=== PATIENT | female | born 1940 | race Caucasian/White ===

== ENCOUNTER 2017-03-21 10:23 | Emergency (ER) | payer SELFPAY ==
[2017-03-21 10:33] VITALS: BP 96/57
--- NOTE | 2017-03-21 10:36 | UC ---
Respiratory Complaint HPI - HPI Summary HPI Summary: Per urgent care physician assistant "c/o productive cough with green secretions, feels like "lungs are full" that started 2 days ago. Received flu shot 3 days ago. " states she has been sick x 3 wks. son has been trying to convince her to come to get treated and she has refused. cough. no fever. no SOB. quit smoking last yr. started at age 42, 1 pk per week. used neb 730 this AM. adamantly denies h/o COPD stating that all breathing tests have been nml. - History of Current Complaint Chief Complaint: UCRespiratory Stated Complaint: COUGH Time Seen by Provider: 03/21/17 10:34 - Allergies/Home Medications Allergies/Adverse Reactions: Allergies Allergy/AdvReac Type Severity Reaction Status Date / Time No Known Allergies Allergy Verified 03/21/17 10:27 PMH/Surg Hx/FS Hx/Imm Hx Previously Healthy: Yes Other History Of: Negative For: HIV - Surgical History Surgical History: Yes Surgery Procedure, Year, and Place: Benign Left Breast biopsy [id number] - Family History Known Family History: Positive: Hypertension - Social History Alcohol Use: None Substance Use Type: None Smoking Status (MU): Former Smoker When Did the Patient Quit Smoking/Using Tobacco: 04/2015 - Immunization History Most Recent Influenza Vaccination: 2016 Review of Systems Constitutional: Negative Skin: Negative Eyes: Negative ENT: Negative Respiratory: Cough Cardiovascular: Negative Gastrointestinal: Negative Genitourinary: Negative Motor: Negative Neurovascular: Negative Musculoskeletal: Negative Neurological: Negative Psychological: Negative Is Patient Immunocompromised?: No All Other Systems Reviewed And Are Negative: Yes Physical Exam Triage Information Reviewed: Yes Appearance: Well-Appearing, Well-Nourished, Thin Vital Signs: Initial Vital Signs Temp 99.8 F 03/21/17 10:29 Pulse 97 03/21/17 10:29 Resp 40 03/21/17 10:29 BP 96/57 03/21/17 10:29 Pulse Ox 92 03/21/17 10:29 Vital Signs Reviewed: Yes Eye Exam: Normal ENT: Positive: Hearing grossly normal, Pharynx normal, TMs normal Respiratory: Positive: Respiratory distress - grunting w/ breathing. RR 40. speaks full sentences, Decreased breath sounds. Negative: Crackles, Rhonchi, Stridor, Wheezing Cardiovascular Exam: Normal Cardiovascular: Positive: RRR, No Murmur, Pulses Normal Abdomen Description: Positive: Nontender, Soft Musculoskeletal Exam: Normal Neurological Exam: Normal Psychological Exam: Normal Skin Exam: Normal UC Diagnostic Evaluation - Laboratory O2 Sat by Pulse Oximetry: 92 Respiratory Course/Dx - Course Course Of Treatment: CXR shows large rt mass vs pneumonia. COPD, possible pulm fibrosis. O2 sat is 92% on RA initially with RR of 40 & grunting. 3LNC up to 94 %. s/p nebulizer w/ RR 37 & 94% astill on 3LNC. -resists ER initially but understands potential progression of resp distress and . she continues to refuse ambulance but will go to ER by private car. 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 I stressed the importance. she declines to call him to come pick her up. I advised to go as quickly as possible to avoid rapid decline. she does admit that her son has been trying to convince her to come in for 3 weeks. - Differential Dx/Diagnosis Differential Diagnosis/HQI/PQRI: Bronchitis, Exacerbation Of COPD, Lower Resp Infection Provider Diagnoses: respiratory distress Discharge - Discharge Plan Condition: Fair Disposition: AGAINST MEDICAL ADVICE Referrals: Gabriela Banerjee PA [Primary Care Provider] -
--- NOTE | 2017-03-21 11:19 | RAD ---
INDICATION: Cough x2 days COMPARISON: Chest x-ray dated September 22, 2015 TECHNIQUE: PA and lateral views of the chest were obtained. FINDINGS: The heart and mediastinum are normal in size and contour. On the AP and lateral views the lungs are hyperaerated, there is an increased retrosternal airspace and the diaphragm are flattened similar to the prior chest x-ray. There is worsening patchy parenchymal density overlying the right greater than left lung bases. Overlying the mid-level right lung is a more confluent area of density measuring approximately 1.9 x 2.9 cm in the AP projection. Visualized bones are normal for the patient's age. There is no radiographic evidence of free air beneath the diaphragm IMPRESSION: CHRONIC FINDINGS ARE CONSISTENT WITH THE STIGMATA OF CHRONIC OBSTRUCTIVE PULMONARY DISEASE AND POTENTIALLY EARLY INTERSTITIAL PULMONARY FIBROSIS. THERE IS WORSENING PARENCHYMAL DENSITY OVERLYING THE RIGHT WORSE THAN LEFT MID-LEVEL AND LOWER LUNGS WHICH COULD REPRESENT PNEUMONIA ACCORDING TO THE PATIENT'S CURRENT CLINICAL PRESENTATION. A FOLLOW-UP CHEST X-RAY AFTER AN APPROPRIATE COURSE OF THERAPY IS ADVISED THE PATIENT LIKELY HAS RISK FACTORS FOR LUNG CANCER.
[2017-03-21] MEDS ORDERED: Albuterol 2.5 MG/3 ML NEB.SOL* (0.083%) INH ONE (11:30)
== END 2017-03-21 12:35 | disposition left against medical advice (07) ==
LOC: UCCORT 10:23
DX: R06.03 Acute respiratory distress (principal); R05 Cough; Z87.891 Personal history of nicotine dependence
CPT/HCPCS: 71020; 99213; G0463

== ENCOUNTER 2017-08-22 10:33 | Emergency (ER) | payer MEDICARE ==
[2017-08-22 11:59] VITALS: BP 111/71
--- NOTE | 2017-08-22 13:00 | UC ---
Respiratory Complaint HPI - HPI Summary HPI Summary: Patient here today with sore throat cough with dark yellow sputum low-grade temperatures has been going on for 2 days. Denies shortness of breath. Patient is concerned because she's had pneumonia in the past. Quit smoking 3 years ago is being treated for breast cancer right breast with an oral agent and reports excellent management by her oncologist - History of Current Complaint Chief Complaint: UCRespiratory Stated Complaint: SORE THROAT Time Seen by Provider: 08/22/17 12:30 Hx Obtained From: Patient ?: No Onset/Duration: Sudden Onset, Lasting Days - 2, Still Present Timing: Constant Severity Initially: Mild Severity Currently: Mild Character: Cough: Productive Aggravating Factors: Nothing Alleviating Factors: Nothing Associated Signs And Symptoms: Positive: Fever - subjective report of fevers, Pleuritic Chest Pain, URI - Allergies/Home Medications Allergies/Adverse Reactions: Allergies Allergy/AdvReac Type Severity Reaction Status Date / Time No Known Allergies Allergy Verified 03/21/17 10:27 Home Medications: Home Medications Calcium Carbonate [Calcium] 1,200 mg PO TID 08/22/17 [History Confirmed 08/22/17 ] Oral Chemo 1 dose PO DAILY 08/22/17 [History Confirmed 08/22/17] Vitamin D 400 units PO DAILY 08/22/17 [History Confirmed 08/22/17] Vitamin B Complex [Super B-50 Complex] 1 each PO DAILY 08/22/17 [History Confirmed 08/22/17] PMH/Surg Hx/FS Hx/Imm Hx Previously Healthy: No Cancer History: Breast Cancer Other History Of: Negative For: HIV - Surgical History Surgical History: Yes Surgery Procedure, Year, and Place: Benign Left Breast biopsy [id number] - Family History Known Family History: Positive: None, Hypertension - Social History Occupation: Retired Lives: With Family Alcohol Use: None Substance Use Type: None Smoking Status (MU): Former Smoker When Did the Patient Quit Smoking/Using Tobacco: 04/2015 - Immunization History Most Recent Influenza Vaccination: 2017 Review of Systems Constitutional: Fever - subjective, Chills, Fatigue Skin: Negative Eyes: Negative ENT: Sore Throat Respiratory: Cough Cardiovascular: Negative Gastrointestinal: Negative Genitourinary: Negative Motor: Negative Neurovascular: Negative Musculoskeletal: Negative Neurological: Negative Psychological: Negative Is Patient Immunocompromised?: No All Other Systems Reviewed And Are Negative: Yes Physical Exam Triage Information Reviewed: Yes Appearance: No Pain Distress, Ill-Appearing - chronic illness, Thin Vital Signs: Initial Vital Signs Temp 99.3 F 08/22/17 11:50 Pulse 70 08/22/17 11:50 Resp 16 08/22/17 11:50 BP 111/71 08/22/17 11:50 Pulse Ox 97 08/22/17 11:50 Vital Signs Reviewed: Yes Eye Exam: Normal Eyes: Positive: Conjunctiva Clear ENT Exam: Normal ENT: Positive: Normal ENT inspection, Hearing grossly normal, Pharynx normal. Negative: Nasal congestion, Nasal drainage, Trismus, Muffled voice, Hoarse voice , Sinus tenderness Neck exam: Normal Neck: Positive: Supple, Nontender Respiratory Exam: Normal Respiratory: Positive: Chest non-tender, Lungs clear, Normal breath sounds, No respiratory distress, No accessory muscle use Cardiovascular Exam: Normal Cardiovascular: Positive: RRR, No Murmur, Pulses Normal, Brisk Capillary Refill Musculoskeletal Exam: Normal Musculoskeletal: Positive: Strength Intact, ROM Intact, No Edema Neurological Exam: Normal Neurological: Positive: Alert, Muscle Tone Normal Psychological Exam: Normal Skin Exam: Normal UC Diagnostic Evaluation - Laboratory O2 Sat by Pulse Oximetry: 97 - Radiology Xray Interpretation: Positive (See Comments) - small right basililar infiltrate , small pleural effusion Radiology Interpretation Completed By: Radiologist Respiratory Course/Dx - Course Course Of Treatment: continue albuterol, increase fluids, doxycycline, follow with pcp in 1 week - Differential Dx/Diagnosis Provider Diagnoses: right basilar pneumonia/pleural effusion Discharge - Sign-Out/Discharge Documenting (check all that apply): Discharge/Admit/Transfer - Discharge Plan Condition: Stable Disposition: HOME Prescriptions: DOXYcycline CAP(*) [DOXYcycline 100MG CAP(*)] 100 mg PO BID #20 cap Patient Education Materials: Community Acquired Pneumonia (ED) Referrals: Molly Bennett MD [Primary Care Provider] - 5 Days Additional Instructions: Please separate the use of your antibiotic and calcium carbonate by 2 hours - Billing Disposition and Condition Condition: STABLE Disposition: HOME
--- NOTE | 2017-08-22 13:01 | RAD ---
INDICATION: Shortness of breath and cough. COMPARISON: Comparison is made with a prior chest x-ray study from March 21, 2017. TECHNIQUE: Dual-energy PA and lateral views of the chest were obtained. FINDINGS: Cardiac and mediastinal contours appear normal. The lungs are hyperinflated. There is mild prominence of the interstitial markings which is unchanged. There is a small infiltrate at the right lung base likely within the right middle lobe which appears less prominent than on the prior study. There appears to be a trace right pleural effusion. IMPRESSION: 1. SMALL RIGHT BASILAR INFILTRATE AND TRACE PLEURAL EFFUSION. 2. COPD.
== END 2017-08-22 13:25 | disposition home or self-care (01) ==
LOC: UCCORT 10:33
DX: J18.9 Pneumonia, unspecified organism (principal); J90 Pleural effusion, not elsewhere classified; Z87.891 Personal history of nicotine dependence
CPT/HCPCS: 71046; 87651; 99212; G0463

== ENCOUNTER 2017-10-21 18:38 | Emergency (ER) | payer MEDICARE ==
[2017-10-21 18:52] VITALS: BP 111/65
--- NOTE | 2017-10-21 20:11 | RAD ---
INDICATION: Chest pain COMPARISON: Similar chest x-ray dated August 22, 2017 TECHNIQUE: PA and lateral views of the chest were obtained. FINDINGS: The heart and mediastinum are normal in size and contour. Similar to the prior chest x-ray, the stigmata of chronic obstructive pulmonary disease is seen. Otherwise the lungs are grossly clear. There is no evidence of large pleural effusion. Visualized bones are normal for the patient's age. There is no radiographic evidence of free air beneath the diaphragm IMPRESSION: STIGMATA OF CHRONIC OBSTRUCTIVE PULMONARY DISEASE SIMILAR IN APPEARANCE TO THE PRIOR CHEST X-RAY.
--- NOTE | 2017-10-21 20:24 | ED ---
Respiratory - HPI Summary HPI Summary: 77 yr old female with the complaint of pain in upper back, worse with deep breath, associated with fever, fatigue, coughing, but non productive. She does not smoke any more. No other complaints. - History of Current Complaint Chief Complaint: UCBackPain Stated Complaint: BACK DISCOMFORT Time Seen by Provider: 10/21/17 19:00 Pain Intensity: 2 - Allergy/Home Medications Allergies/Adverse Reactions: Allergies Allergy/AdvReac Type Severity Reaction Status Date / Time No Known Allergies Allergy Verified 03/21/17 10:27 Home Medications: Home Medications Exemestane 25 mg PO DAILY 10/21/17 [History Confirmed 10/21/17] PMH/Surg Hx/FS Hx/Imm Hx Endocrine/Hematology History: Denies: Hx Diabetes Cardiovascular History: Denies: Hx Congestive Heart Failure, Hx Hypertension Respiratory History: Denies: Hx Lung Cancer Neurological History: Denies: Hx Transient Ischemic Attacks (TIA) Psychiatric History: Denies: Hx Anxiety - Cancer History Cancer Type, Location and Year: right breast growth 2017, radiation tx, and current oral chemo Hx Radiation Therapy: No - Surgical History Surgery Procedure, Year, and Place: Benign Left Breast biopsy [id number]. LUMPECTOMY RIGHT BREAST Infectious Disease History: No Infectious Disease History: Denies: Traveled Outside the [place] in Last 30 Days - Family History Known Family History: Positive: None, Hypertension - Social History Alcohol Use: None Substance Use Type: Reports: None Smoking Status (MU): Former Smoker Review of Systems Positive: Fever, Fatigue Positive: Other - pain with deep breath Positive: Shortness Of Breath, Cough All Other Systems Reviewed And Are Negative: Yes Physical Exam Triage Information Reviewed: Yes Vital Signs On Initial Exam: Initial Vitals Temp Pulse Resp BP Pulse Ox 99.1 F 74 20 111/65 97 10/21/17 18:43 10/21/17 18:43 10/21/17 18:43 10/21/17 18:43 10/21/17 18:43 Vital Signs Reviewed: Yes Appearance: Positive: Well-Appearing, No Pain Distress Skin: Positive: Warm, Skin Color Reflects Adequate Perfusion Head/Face: Positive: Normal Head/Face Inspection Eyes: Positive: EOMI ENT: Positive: Normal ENT inspection Neck: Positive: Nontender Respiratory/Lung Sounds: Positive: Clear to Auscultation, Breath Sounds Present Cardiovascular: Positive: RRR. Negative: Murmur Abdomen Description: Positive: Nontender Musculoskeletal: Positive: Strength/ROM Intact Neurological: Positive: Sensory/Motor Intact, Alert, Oriented to Person Place, Time, CN Intact II-III Psychiatric: Positive: Normal - Katiana Coma Scale Best Eye Response: 4 - Spontaneous Best Motor Response: 6 - Obeys Commands Best Verbal Response: 5 - Oriented Coma Scale Total: 15 Diagnostics - Vital Signs Vital Signs Temp Pulse Resp BP Pulse Ox 10/21/17 18:43 99.1 F 74 20 111/65 97 - Laboratory Lab Statement: Any lab studies that have been ordered have been reviewed, and results considered in the medical decision making process. - Radiology chest Xray Interpretation: No Acute Changes Radiology Interpretation Completed By: Radiologist - COPD Disposition - Course Course Of Treatment: 77 yr old signing out AMA. Advised to go to the ER for work up of her symptoms and risk of PE among other things. - Diagnoses Provider Diagnoses: Pleuritic pain, Fever, Shortness of breath Discharge - Sign-Out/Discharge Documenting (check all that apply): Discharge/Admit/Transfer - Discharge Plan Condition: Good Disposition: AGAINST MEDICAL ADVICE Referrals: Molly Bennett MD [Primary Care Provider] - - Billing Disposition and Condition Condition: GOOD Disposition: Against Medical Advice
== END 2017-10-21 20:28 | disposition left against medical advice (07) ==
LOC: UCCORT 18:38
DX: R07.81 Pleurodynia (principal); R50.9 Fever, unspecified; R06.02 Shortness of breath
CPT/HCPCS: 71046; 99211; G0463

== ENCOUNTER 2017-12-31 15:34 | Emergency (ER) | payer MEDICARE ==
--- OUTSIDE RECORDS SUMMARY | 2017-12-31 15:42 | XMS REPORT | Continuity of Care Document ---
:1940 External Reference #:[id number] Author Name Molly Bennett M.D. Address [address] [place] [address] [address] [place] [address] Care Team Providers Name Role Phone Molly Bennett MD Care Team Information Hand Bander Unavailable Payers Type Date Identification Numbers Payment Provider Subscriber Policy Number: [id number] [facility] Kaya Felipe Group Number: [id number] PayID: [id number] [address] [place] [address] Advance Directives Description No Information Available Problems Description No Information Family History Description No Information Available Social History Type Date Description Comments Sex Unknown Allergies, Adverse Reactions, Alerts Description No Known Drug Allergies Medications Medication Date Status Form Strength Qnty SIG Indications Ordering Provider Ibuprofen Active Tablets 800mg 90tabs 1 by mouth M51.37 Molly Bennett 8 three M., M.D. times a day as needed M79.606 M54.17 Hydrocodone-Acetaminophen 08/19/2017 Active Tablets 7.5-325mg 30tabs 1 tab M51.37 Donald, by Ahmad mouth M., three M.D. times a day as needed M79.606 M54.17 Immunizations Description No Information Available Vital Signs Description No Information Available Results Test Date Facility Test Result H/L Range Note Urine Drug [facility] [id number] Negative 5 1, 2 8 ng/mL Antidepressants [facility] Amitriptyline Negative 20 Panel By LC/MS/MS 8 ng/mL Clomipramine Negative ng/mL 20 Desipramine Negative ng/mL 20 Doxepin Negative ng/mL 20 Fluoxetine Negative ng/mL 20 Imipramine Negative ng/mL 20 Norclomipramine Negative ng/mL 20 Nordoxepin Negative ng/mL 20 Nortriptyline Negative ng/mL 20 Sertraline Negative ng/mL 20 Trimipramine Negative ng/mL 20 3 Barbiturates Panel By 08/19/2017 [facility] Butalbital Negative ng/mL 100 LC/MS/MS Pentobarbital Negative ng/mL 100 Phenobarbital Negative ng/mL 100 Secobarbital Negative ng/mL 100 4 Benzodiazepines 08/19/2017 [facility] 2-Hydroxyethylflurazepam Negative 10 Panel By LC/MS/MS ng/mL 7-Aminoclonazepam Negative ng/mL 10 Alprazolam Negative ng/mL 10 Chlordiazepoxide Negative ng/mL 10 Clonazepam Negative ng/mL 10 Desalkylflurazepam Negative ng/mL 10 Diazepam Negative ng/mL 10 Lorazepam Negative ng/mL 10 Midazolam Negative ng/ml 10 Nordiazepam Negative ng/mL 10 Alpha-hydroxyalprazolam Negative ng/mL 10 Alpha-Hydroxymidazolam Negative ng/mL 10 Alpha-Hydroxytriazolam Negative ng/mL 10 Oxazepam Negative ng/mL 10 Prazepam Negative ng/mL 10 Temazepam Negative ng/mL 10 Zolpidem Negative ng/mL 10 5 Buprenorphine Panel By 08/19/2017 [facility] Buprenorphine Negative ng/mL 5 LC/MS/MS Naloxone Negative ng/mL 10 Norbuprenorphine Negative ng/mL 5 6 Methadone Panel By 08/19/2017 [facility] Eddp Negative ng/mL 10 LC/MS/MS Methadone Negative ng/mL 10 7 Opiates Panel By 08/19/2017 [facility] 6-Yu (Heroin Negative ng/ mL 5 LC/MS/MS Metabolite) Codeine Negative ng/mL 50 Hydrocodone Negative Inconsi <SEE NOTE> ng/mL 50 8 Hydromorphone Negative Inconsi <SEE NOTE> ng/mL 50 9 Morphine Negative ng/mL 50 Norhydrocodone Negative Inconsi <SEE NOTE> ng/mL 50 10 Noroxycodone Negative ng/mL 50 Noroxymorphone Negative ng/mL 50 Oxycodone Negative ng/mL 50 Oxymorphone Negative ng/mL 50 11 Specimen Validity 08/19/2017 [facility] Creatinine, Urine 122 mg/ dL >20 Panel Color YELLOW Yellow pH 7.6 5.0-8.0 Specific [place] 1.012 1.001-1.035 12 Amphetamine Panel By 08/19/2017 [facility] Amphetamine Negative ng/mL 50 LC/MS/MS Methamphetamine Negative ng/mL 50 Mdma (Ecstasy) Negative ng/mL 50 Mda Negative ng/ml 50 Mdea Negative ng/mL 50 13 Cocaine Panel 08/19/2017 [facility] Benzoylecgonine Negative ng/ mL 50 14 By LC/MS/MS (Cocaine) Urine DRG SCR 08/19/2017 [facility] Amphetamine NEGATIVE 1000 (12PNL-PM) Barbiturate NEGATIVE 200 Benzodiazepine NEGATIVE 200 Buprenorphine NEGATIVE 15 Cannabinoid NEGATIVE 50 Cocaine NEGATIVE 300 Methadone NEGATIVE 300 Methaqualone NEGATIVE 300 Opiate NEGATIVE 300 Oxycodone NEGATIVE 300 Phencyclidine NEGATIVE 25 Propoxyphene NEGATIVE 300 15 Laboratory test finding 08/19/2017 [facility] Tramadol Negative ng/mL 5 16 Gabapentin Negative ng/mL 100 17 Ethyl Glucuronide Negative ng/mL 500 18 1 Prescribed Medications: Hydrocodone (Hydrocodone), Ibuprofen (Ibuprofen), Acetaminophen (Acetaminophen) 2 Prescribed Medications: Hydrocodone (Hydrocodone), Ibuprofen (Ibuprofen), Acetaminophen (Acetaminophen) 3 Prescribed Medications: Hydrocodone (Hydrocodone), Ibuprofen (Ibuprofen), Acetaminophen (Acetaminophen) 4 Prescribed Medications: Hydrocodone (Hydrocodone), Ibuprofen (Ibuprofen), Acetaminophen (Acetaminophen) 5 Prescribed Medications: Hydrocodone (Hydrocodone), Ibuprofen (Ibuprofen), Acetaminophen (Acetaminophen) 6 Prescribed Medications: Hydrocodone (Hydrocodone), Ibuprofen (Ibuprofen), Acetaminophen (Acetaminophen) 7 Prescribed Medications: Hydrocodone (Hydrocodone), Ibuprofen (Ibuprofen), Acetaminophen (Acetaminophen) 8 Negative Inconsistent 9 Negative Inconsistent 10 Negative Inconsistent 11 Prescribed Medications: Hydrocodone (Hydrocodone), Ibuprofen (Ibuprofen), Acetaminophen (Acetaminophen) 12 Prescribed Medications: Hydrocodone (Hydrocodone), Ibuprofen (Ibuprofen), Acetaminophen (Acetaminophen) 13 Prescribed Medications: Hydrocodone (Hydrocodone), Ibuprofen (Ibuprofen), Acetaminophen (Acetaminophen) 14 Prescribed Medications: Hydrocodone (Hydrocodone), Ibuprofen (Ibuprofen), Acetaminophen (Acetaminophen) 15 Prescribed Medications: Hydrocodone (Hydrocodone), Ibuprofen (Ibuprofen), Acetaminophen (Acetaminophen) 16 Prescribed Medications: Hydrocodone (Hydrocodone), Ibuprofen (Ibuprofen), Acetaminophen (Acetaminophen) 17 Prescribed Medications: Hydrocodone (Hydrocodone), Ibuprofen (Ibuprofen), Acetaminophen (Acetaminophen) 18 Prescribed Medications: Hydrocodone (Hydrocodone), Ibuprofen (Ibuprofen), Acetaminophen (Acetaminophen) Procedures Description No Information Available Encounters Type Date Location Provider Dx Diagnosis Office Visit 12/23/2017 [facility] Molly Bennett 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.891 longterm (current) use of opiate analgesic Office Visit 11/11/2017 1:15p [facility] Molly Bennett M51.37 Other intervertebral M., M.D. 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.891 longterm (current) use of opiate analgesic Office Visit 10/14/2017 2:30p [facility] Molly Bennett M51.37 Other intervertebral M., M.D. 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
--- OUTSIDE RECORDS SUMMARY | 2017-12-31 15:42 | XMS REPORT | Continuity of Care Document ---
:1940 External Reference #:[id number] Author Name Molly Bennett M.D. 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 [address] [place] [address] Advance Directives Description No Information Available Problems Description No Information Family History Date Family Member(s) Problem(s) Comments General No Current Problems Father due to Natural Causes () Mother due to Diabetes () Children 5 Siblings 11 Grandchildren Several Social History Type Date Description Comments Sex Unknown Work Status Retired ETOH Use Denies alcohol use Tobacco Use Start: Unknown End: Unknown Patient is a former smoker Recreational Drug Use Denies Drug Use Allergies, Adverse Reactions, Alerts Description No Known Drug Allergies Medications Medication Date Status Form Strength Qnty SIG Indications Ordering Provider Albuterol Active Nebulizer (2.5mg/3ML) J44.9 Unknown Sulfate 00 0.083% Pantoprazole Active Tablets DR 40mg K21.0 Unknown Sodium 00 K30 Ventolin HFA Active Aerosol 108(90Base) J44.9 Unknown mcg/Act Amoxicillin 10/27/2017 - Hx Tablets 500mg 40t 2 by [id number] Stouti, 11/06/2017 abs mouth [place], twice a M.D. day Prednisone 10/27/2017 - Hx Tablets 20mg 20t 2 tab by Edel Stouti, 11/11/2017 abs mouth Ahmad M., daily 4 M.D. days,30x 3d,20x2d ,10x7d Letrozole - Hx Tablets 2.5mg Raphael, 08/17/2017 MD Xiang Fluoxetine HCL - Hx Capsules 10mg F41.9 Unknown 08/17/2017 F33.9 Immunizations Description No Information Available Vital Signs Date Vital Result Comment 12/23/2017 2:22pm BP Systolic 104 mmHg BP Diastolic 60 mmHg Height 63 inches 5'3" Weight 103.00 lb BMI (Body Mass Index) 18.2 kg/m2 Heart Rate 68 /min Respiratory Rate 14 /min 10/27/2017 11:14am BP Systolic 136 mmHg BP Diastolic 60 mmHg Height 63 inches 5'3" Weight 105.00 lb BMI (Body Mass Index) 18.6 kg/m2 Heart Rate 67 /min Body Temperature 97.0 F Respiratory Rate 14 /min 08/19/2017 3:41pm BP Systolic 110 mmHg BP Diastolic 60 mmHg Height 63 inches 5'3" Weight 107.00 lb BMI (Body Mass Index) 19.0 kg/m2 Heart Rate 85 /min Respiratory Rate 18 /min Results Test Date Facility Test Result H/L Range Note Laboratory test 08/22/2017 [facility] Rapid Strep Negative Negative 1 finding Molecular Urine DRG SCR 08/19/2017 [facility] Amphetamine NEGATIVE 1000 2 (12PNL-PM) Barbiturate NEGATIVE 200 Benzodiazepine NEGATIVE 200 Buprenorphine NEGATIVE 15 Cannabinoid NEGATIVE 50 Cocaine NEGATIVE 300 Methadone NEGATIVE 300 Methaqualone NEGATIVE 300 Opiate NEGATIVE 300 Oxycodone NEGATIVE 300 Phencyclidine NEGATIVE 25 Propoxyphene NEGATIVE 300 3 Antidepressants Panel 08/19/2017 [facility] Amitriptyline Negative ng/mL 20 By LC/MS/MS Clomipramine Negative ng/mL 20 Desipramine Negative ng/mL 20 Doxepin Negative ng/mL 20 Fluoxetine Negative ng/mL 20 Imipramine Negative ng/mL 20 Norclomipramine Negative ng/mL 20 Nordoxepin Negative ng/mL 20 Nortriptyline Negative ng/mL 20 Sertraline Negative ng/mL 20 Trimipramine Negative ng/mL 20 4 Barbiturates Panel By 08/19/2017 [facility] Butalbital Negative ng/mL 100 LC/MS/MS Pentobarbital Negative ng/mL 100 Phenobarbital Negative ng/mL 100 Secobarbital Negative ng/mL 100 5 Benzodiazepines 08/19/2017 [facility] 2-Hydroxyethylflurazepam Negative 10 Panel By [...] Negative ng/mL 10 Zolpidem Negative ng/mL 10 6 Buprenorphine Panel By 08/19/2017 [facility] Buprenorphine Negative ng/mL 5 LC/MS/MS Naloxone Negative ng/mL 10 Norbuprenorphine Negative ng/mL 5 7 Methadone Panel By 08/19/2017 [facility] Eddp Negative ng/mL 10 LC/MS/MS Methadone Negative ng/mL 10 8 Opiates Panel By 08/19/2017 [facility] 6-Yu (Heroin Negative ng/ mL 5 LC/MS/MS Metabolite) Codeine Negative ng/mL 50 Hydrocodone Negative Inconsi <SEE NOTE> ng/mL 50 9 Hydromorphone Negative Inconsi <SEE NOTE> ng/mL 50 10 Morphine Negative ng/mL 50 Norhydrocodone Negative Inconsi <SEE NOTE> ng/mL 50 11 Noroxycodone Negative ng/mL 50 Noroxymorphone Negative ng/mL 50 Oxycodone Negative ng/mL 50 Oxymorphone Negative ng/mL 50 12 Specimen Validity 08/19/2017 [facility] Creatinine, Urine 122 mg/ dL >20 Panel Color YELLOW Yellow pH 7.6 5.0-8.0 Specific [place] 1.012 1.001-1.035 13 Amphetamine Panel By 08/19/2017 [facility] Amphetamine Negative ng/mL 50 LC/MS/MS Methamphetamine Negative ng/mL 50 Mdma (Ecstasy) Negative ng/mL 50 Mda Negative ng/ml 50 Mdea Negative ng/mL 50 14 Laboratory test 08/19/2017 [facility] Cocaine Panel By Negative ng/mL 50 15 finding LC/MS/MS Tramadol Negative ng/mL 5 16 [id number] Negative ng/mL 5 17 Gabapentin Negative ng/mL 100 18 Ethyl Glucuronide Negative ng/mL 500 19 1 Poultry Hanger: [id number] 2 Prescribed Medications: Hydrocodone (Hydrocodone), Ibuprofen (Ibuprofen), Acetaminophen (Acetaminophen) 3 Prescribed Medications: Hydrocodone (Hydrocodone), Ibuprofen (Ibuprofen), Acetaminophen (Acetaminophen) 4 Prescribed Medications: Hydrocodone (Hydrocodone), Ibuprofen (Ibuprofen), Acetaminophen (Acetaminophen) 5 Prescribed Medications: Hydrocodone (Hydrocodone), Ibuprofen (Ibuprofen), Acetaminophen (Acetaminophen) 6 Prescribed Medications: Hydrocodone (Hydrocodone), Ibuprofen (Ibuprofen), Acetaminophen (Acetaminophen) 7 Prescribed Medications: Hydrocodone (Hydrocodone), Ibuprofen (Ibuprofen), Acetaminophen (Acetaminophen) 8 Prescribed Medications: Hydrocodone (Hydrocodone), Ibuprofen (Ibuprofen), Acetaminophen (Acetaminophen) 9 Negative Inconsistent 10 Negative Inconsistent 11 Negative Inconsistent 12 Prescribed Medications: Hydrocodone (Hydrocodone), Ibuprofen (Ibuprofen), Acetaminophen (Acetaminophen) 13 Prescribed Medications: Hydrocodone (Hydrocodone), Ibuprofen (Ibuprofen), Acetaminophen (Acetaminophen) 14 Prescribed Medications: Hydrocodone (Hydrocodone), Ibuprofen (Ibuprofen), Acetaminophen (Acetaminophen) 15 Prescribed Medications: Hydrocodone (Hydrocodone), Ibuprofen (Ibuprofen), Acetaminophen (Acetaminophen) 16 Prescribed Medications: Hydrocodone (Hydrocodone), Ibuprofen (Ibuprofen), Acetaminophen (Acetaminophen) 17 Prescribed Medications: Hydrocodone (Hydrocodone), Ibuprofen (Ibuprofen), Acetaminophen (Acetaminophen) 18 Prescribed Medications: Hydrocodone (Hydrocodone), Ibuprofen (Ibuprofen), Acetaminophen (Acetaminophen) 19 Prescribed Medications: Hydrocodone (Hydrocodone), Ibuprofen (Ibuprofen), Acetaminophen (Acetaminophen) Procedures Date Code Description Status 10/27/2017 32478 Spirometry Completed 10/27/2017 50072 Tympanometry Completed 08/19/2017 52127 Visual Screening Test Completed 08/19/2017 56308 EKG Completed 08/19/2017 73868 Audiometry, Bekesy, Screening Completed Encounters Type Date Location Provider Dx Diagnosis Office Visit 12/23/2017 [place] [facility] Molly Bennett, E78.2 Mixed hyperlipidemia 2:00p M.D. K21.0 Gastro-esophageal reflux disease with esophagitis K30 Functional dyspepsia J44.9 Chronic obstructive pulmonary disease, unspecified L20.9 Atopic dermatitis, unspecified J30.9 Allergic rhinitis, unspecified F41.9 Anxiety disorder, unspecified F33.9 Major depressive disorder, recurrent, unspecified H90.6 Mixed conductive and sensorineural hearing loss, bilateral M25.519 Pain in unspecified shoulder H53.30 Unspecified disorder of binocular vision M15.9 Polyosteoarthritis, unspecified M75.111 Incomplete rotatr-cuff tear/ruptr of r shoulder, not trauma M51.37 Other intervertebral disc degeneration, lumbosacral region M54.17 Radiculopathy, lumbosacral region M79.606 Pain in leg, unspecified M54.2 Cervicalgia Office Visit 10/27/2017 10:45a [facility] Molly Bennett E78.2 Mixed hyperlipidemia [place] K21.0 Gastro-esophageal reflux disease with esophagitis K30 Functional dyspepsia J44.9 Chronic obstructive pulmonary disease, unspecified L20.9 Atopic dermatitis, unspecified J30.9 Allergic rhinitis, unspecified F41.9 Anxiety disorder, unspecified F33.9 Major depressive disorder, recurrent, unspecified H90.6 Mixed conductive and sensorineural hearing loss, bilateral M25.519 Pain in unspecified shoulder H53.30 Unspecified disorder of binocular vision M15.9 Polyosteoarthritis, unspecified M75.111 Incomplete rotatr-cuff tear/ruptr of r shoulder, not trauma M51.37 Other intervertebral disc degeneration, lumbosacral region M54.17 Radiculopathy, lumbosacral region M79.606 Pain in leg, unspecified J20.9 Acute bronchitis, unspecified J01.40 Acute pansinusitis, unspecified H66.93 Otitis media, unspecified, bilateral R06.02 Shortness of breath R05 Cough R09.81 Nasal congestion Office Visit 08/19/2017 3:15p [facility] Molly Bennett Z00.01 Encounter for [place] general adult medical exam w abnormal findings E78.2 Mixed hyperlipidemia K21.0 Gastro-esophageal reflux disease with esophagitis K30 Functional dyspepsia J44.9 Chronic obstructive pulmonary disease, unspecified Z68.1 Body mass index (BMI) 19.9 or less, adult L20.9 Atopic dermatitis, unspecified J30.9 Allergic rhinitis, unspecified F41.9 Anxiety disorder, unspecified F33.9 Major depressive disorder, recurrent, unspecified H90.6 Mixed conductive and sensorineural hearing loss, bilateral M25.519 Pain in unspecified shoulder H53.30 Unspecified disorder of binocular vision M15.9 Polyosteoarthritis, unspecified M75.111 Incomplete rotatr-cuff tear/ruptr of r shoulder, not trauma M51.37 Other intervertebral disc degeneration, lumbosacral region M54.17 Radiculopathy, lumbosacral region M79.606 Pain in leg, unspecified Plan of Treatment 12/23/2017 - Molly Bennett M.D.E78.2 Mixed hyperlipidemiaComments:DIET REVIEWED CONTINUE DIETWT LOSSF/U LAB FBWK21.0 Gastro-esophageal reflux disease with esophagitisComments:AVOID CAFFEINE, ETOH AND SPICY FOODSTUMS OR MYLANTA PRN CALL WITH PROBLEMS OR [id number] Functional dyspepsiaComments:AVOID CAFFEINE, ETOH AND SPICY FOODSTUMS OR MYLANTA PRN CALL WITH PROBLEMS OR FNUYICAXX39.9 Chronic obstructive pulmonary disease, unspecifiedComments: INCREASE PO FLUIDREST NEB OR MDI AND /OR TEFIVLM45.9 Atopic dermatitis, unspecifiedComments:SKIN CARE INSTRUCTIONS LOTION OR BABY OIL 2-3 APPLICATION PER DAYUSE MOISTURIZING SOAPAVOID PROLONGED WATER EXPOSUREAVOID USING HOT WATER IN OGSDINY55.9 Allergic rhinitis, unspecifiedComments:INCREASE PO FLUID USE ANTIHISTAMINE PRN SECOND HAND SMOKING [id number] Anxiety disorder, unspecifiedComments:COUNCELLING AND REASSURANCE RELAXATION TECHNIQUES DISCUSSEDCOUNSELED RE: STRESSORS IN LIFE AVOID ALLENERGY/HIGH CAFFEINE EZHYEND82.9 Major depressive disorder, recurrent, unspecifiedComments: COUNCELLING AND REASSURANCE RELAXATION TECHNIQUES DISCUSSED COUNSELED RE: STRESSORS IN LIFEH90.6 Mixed conductive and sensorineural hearing loss, bilateralComments:OBSERVE F/U WITH ENT PRNM25.519 Pain in unspecified shoulderNew Xrays:Shoulder, Complete, Min. Of 2 V LT, Ordered: 12/23/17[place]oulder , Complete, Min. Of 2 V RT, Ordered: 18Comments:EXERCISE/HEAT /MESSAGE AVOID HEAVY LIFTINGTYLENOL OR MOTRIN PRN DUR APWVZQVU03.30 Unspecified disorder of binocular visionComments:USE GLASSES/CONTACTSF/U WITH KEVPVIUGXLXZMB62.9 Polyosteoarthritis, unspecifiedComments:EXERCISE/HEAT/ MESSAGETYLENOL OR MOTRIN PRNAVOID HEAVY LIFTINGWT LOSS DUR CNJYTLQS07.111 Incomplete rotator cuff tear or rupture of right shoulder, not specified as traumaticComments:EXERCISE/HEAT/MESSAGE TYLENOL OR MOTRIN PRNAVOID HEAVY LIFTING ELEVATE PRNM51.37 Other intervertebral disc degeneration, lumbosacral regionComments: CASEM54.17 Radiculopathy, lumbosacral regionComments: CASEM79.606 Pain in leg, unspecifiedComments: CASEM54.2 CervicalgiaNew Xrays: Spine, Cervical; 2 Or 3 Views, Ordered: 12/23/17Comments:EXERCISE/HEAT / MESSAGEAVOID HEAVY LIFTING WT LOSSTYLENOL OR MOTRIN PRN
[2017-12-31 16:33] VITALS: BP 96/54
--- NOTE | 2017-12-31 16:43 | UC ---
Back Pain HPI - HPI Summary HPI Summary: Per vp legal affairs "Day 3 of upper back pain starting as a burning sensation and including both shoulders, painful for pt to raise arms" -she moved this week and although she didnt do any lifting, she did pack and unpack boxes. she has burning pain in in b/l mid and lower thoracic paraspinals. - History of Current Complaint Chief Complaint: UCBackPain Stated Complaint: UPPER BACK COMPLAINT Time Seen by Provider: 12/31/17 16:22 Pain Intensity: 6 - Allergies/Home Medications Allergies/Adverse Reactions: Allergies Allergy/AdvReac Type Severity Reaction Status Date / Time No Known Allergies Allergy Verified 12/31/17 15:53 Home Medications: Home Medications Cholecalciferol TAB* [Vitamin D TAB*] 1 tab PO DAILY 12/31/17 [History Confirmed 12/31/17] Guaifenesin/Pseudoephedrne HCl [Mucinex D ER Tablet] 1 each PO DAILY 12/31/17 [ History Confirmed 12/31/17] Selegiline HCl [Zelapar] 1.25 mg PO DAILY 12/31/17 [History Confirmed 12/31/17] PMH/Surg Hx/FS Hx/Imm Hx Previously Healthy: Yes Other History Of: Negative For: HIV - Surgical History Surgical History: Yes Surgery Procedure, Year, and Place: Benign Left Breast biopsy [id number]. LUMPECTOMY RIGHT BREAST - Family History Known Family History: Positive: None, Hypertension - Social History Alcohol Use: None Substance Use Type: None Smoking Status (MU): Former Smoker When Did the Patient Quit Smoking/Using Tobacco: 2011 - Immunization History Most Recent Influenza Vaccination: 2017 Review of Systems Constitutional: Negative Skin: Negative Eyes: Negative ENT: Negative Respiratory: Negative Cardiovascular: Negative Gastrointestinal: Negative Genitourinary: Negative Motor: Negative Neurovascular: Negative Musculoskeletal: Myalgia Neurological: Negative Psychological: Negative Is Patient Immunocompromised?: No All Other Systems Reviewed And Are Negative: Yes Physical Exam Triage Information Reviewed: Yes Appearance: Well-Appearing, No Pain Distress, Well-Nourished - very pleasant Vital Signs: Initial Vital Signs Temp 98.7 F 12/31/17 15:56 Pulse 78 12/31/17 15:56 Resp 22 12/31/17 15:56 BP 90/58 12/31/17 15:56 Pulse Ox 97 12/31/17 15:56 Vital Signs Reviewed: Yes ENT Exam: Normal Neck exam: Normal Respiratory Exam: Normal Respiratory: Positive: Lungs clear, Normal breath sounds, No respiratory distress, No accessory muscle use. Negative: Crackles, Rhonchi, Stridor, Wheezing Cardiovascular Exam: Normal Cardiovascular: Positive: RRR, No Murmur Abdomen Description: Positive: Nontender, Soft Musculoskeletal: Positive: Other: - She has obvious muscle spasms on b/l thoracic muscle spasms that reproduce pain w/ palpation but actually offers significant relief with the massage I give her. spine bony landmarks are non- tender. Neurological Exam: Normal Psychological Exam: Normal Skin Exam: Normal Back Pain Course/Dx - Course Course Of Treatment: Thoracic muscle spasm. no xrays needed at this time. massage advised. recommend xrays if not improved. - Differential Dx/Diagnosis Differential Diagnosis/HQI/PQRI: Strain, Sprain Provider Diagnoses: Thoracic muscle spasm Discharge - Sign-Out/Discharge Documenting (check all that apply): Patient Departure All imaging exams completed and their final reports reviewed: No Studies - Discharge Plan Condition: Stable Disposition: HOME Prescriptions: Cyclobenzaprine HCl 5 mg PO BEDTIME PRN 5 Days #5 tablet PRN Reason: Pain Patient Education Materials: Muscle Spasm (ED) Referrals: Molly Bennett MD [Primary Care Provider] - 01/07/18 Additional Instructions: Using heat on your back and ibuprofen for short period of time can be very helpful. Massage will be very helpful as we discussed. You can Grace Stuart for a laurage. [phone] -If things don't improve in the next couple of weeks, consideration to xray would be a good idea. - Billing Disposition and Condition Condition: STABLE Disposition: Home
== END 2017-12-31 16:52 | disposition home or self-care (01) ==
LOC: UCCORT 15:34
DX: M62.830 Muscle spasm of back (principal)
CPT/HCPCS: 99212; G0463

== ENCOUNTER 2018-02-04 16:50 | Emergency (ER) | payer MEDICARE ==
[2018-02-04 17:29] VITALS: BP 108/65
--- NOTE | 2018-02-04 18:24 | ED ---
Back Pain - HPI Summary HPI Summary: 77 yr old with upper back pain for few weeks, got better on steroids, and now back with increasing pain in between upper shoulder blades. Burning in nature. She has a history of breast cancer and smoking. She has had no further imaging of her spine to evaluate for lesions. She denies weakness, numbness in legs and arms. Denies SOB, Cp. - History of Current Complaint Chief Complaint: UCBackPain Stated Complaint: UPPER BACK PAIN Time Seen by Provider: 02/04/18 18:01 Pain Intensity: 8 - Allergies/Home Medications Allergies/Adverse Reactions: Allergies Allergy/AdvReac Type Severity Reaction Status Date / Time No Known Allergies Allergy Verified 12/31/17 15:53 PMH/Surg Hx/FS Hx/Imm Hx Endocrine/Hematology History: Denies: Hx Diabetes Cardiovascular History: Denies: Hx Congestive Heart Failure, Hx Hypertension Respiratory History: Denies: Hx Lung Cancer Neurological History: Denies: Hx Transient Ischemic Attacks (TIA) Psychiatric History: Denies: Hx Anxiety - Cancer History Cancer Type, Location and Year: right breast growth 2017, radiation tx, and current oral chemo Hx Radiation Therapy: No - Surgical History Surgery Procedure, Year, and Place: Benign Left Breast biopsy [id number]. LUMPECTOMY RIGHT BREAST Infectious Disease History: No Infectious Disease History: Denies: Traveled Outside the [place] in Last 30 Days - Family History Known Family History: Positive: None, Hypertension - Social History Lives: Alone Alcohol Use: None Substance Use Type: Reports: None Smoking Status (MU): Former Smoker Review of Systems Constitutional: Negative Positive: Other - back pain All Other Systems Reviewed And Are Negative: Yes Physical Exam Triage Information Reviewed: Yes Vital Signs On Initial Exam: Initial Vitals Temp Pulse Resp BP Pulse Ox 98.3 F 83 16 108/65 98 02/04/18 17:24 02/04/18 17:24 02/04/18 17:24 02/04/18 17:24 02/04/18 17:24 Vital Signs Reviewed: Yes Appearance: Positive: Well-Appearing, No Pain Distress Skin: Positive: Warm, Skin Color Reflects Adequate Perfusion Head/Face: Positive: Normal Head/Face Inspection Eyes: Positive: EOMI, BARRY ENT: Positive: Normal ENT inspection Neck: Positive: Supple, Nontender Respiratory/Lung Sounds: Positive: Clear to Auscultation, Breath Sounds Present Cardiovascular: Positive: RRR. Negative: Murmur Abdomen Description: Positive: Nontender Musculoskeletal: Positive: Strength/ROM Intact Neurological: Positive: Sensory/Motor Intact, Alert, Oriented to Person Place, Time, CN Intact II-III, Normal Gait, Finger to Nose - normal, Speech Normal Psychiatric: Positive: Normal - Katiana Coma Scale Best Eye Response: 4 - Spontaneous Best Motor Response: 6 - Obeys Commands Best Verbal Response: 5 - Oriented Coma Scale Total: 15 Diagnostics - Vital Signs Vital Signs Temp Pulse Resp BP Pulse Ox 02/04/18 17:24 98.3 F 83 16 108/65 98 - Laboratory Lab Statement: Any lab studies that have been ordered have been reviewed, and results considered in the medical decision making process. Back Pain Course/Dx - Course Course Of Treatment: signing out AMA with refusal to go to hospital for labs and further imaging of her spine to rule of lesion in spine. She signed out AMA. - Diagnoses Provider Diagnoses: Back pain Discharge - Sign-Out/Discharge Documenting (check all that apply): Patient Departure All imaging exams completed and their final reports reviewed: No Studies - Discharge Plan Condition: Good Disposition: AGAINST MEDICAL ADVICE Referrals: Molly Bennett MD [Primary Care Provider] - - Billing Disposition and Condition Condition: GOOD Disposition: Against Medical Advice
== END 2018-02-04 18:24 | disposition left against medical advice (07) ==
LOC: UCCORT 16:50
DX: M54.9 Dorsalgia, unspecified (principal); Z53.21 Procedure and treatment not carried out due to patient leaving prior to being seen by health care provider; Z85.3 Personal history of malignant neoplasm of breast; Z87.891 Personal history of nicotine dependence
CPT/HCPCS: 99212; G0463

== ENCOUNTER 2018-02-11 12:30 | Emergency (ER) | payer MEDICARE, OTHER ==
--- OUTSIDE RECORDS SUMMARY | 2018-02-11 12:51 | XMS REPORT | Continuity of Care Document ---
:1940 External Reference #:[id number] Author Name Molly Bennett M.D. 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 Payers Type Date Identification Numbers Payment Provider Subscriber Policy Number: [id number] [facility] Comp [employer] Group Number: EXT: [id number] [facility] PayID: [id number] [address] [place] [address] Advance Directives Description No Information Available Problems Description No Information Family History Description No Information Available Social History Type Date Description Comments Sex Unknown Allergies, Adverse Reactions, Alerts Description No Known Drug Allergies Medications Medication Date Status Form Strength Qnty SIG Indications Ordering Provider Prednisone 01/22/20 Hx Tablets 20mg 18tabs 3 tab by M51.Molly Wade 18 - mouth M. MEvelyne 01/30/20 daily 3 18 days, then 2 tab daily x 3 d , then 1 tab daily 3d Percocet 01/22/20 Active Tablets 7.5-325mg 60tabs 1 tab by M51.Molly Wade 18 mouth M., MVenturaDVentura every 6 hours as needed M79.606 M54.17 Ibuprofen 08/19/2017 Active Tablets 800mg 90tabs 1 by mouth M51.37 Molly Bennett three times a M., M.D. day as needed M79.606 M54.17 Hydrocodon 08/19/2017 Hx Tablets 7.5-325mg 30tabs 1 tab by mouth M51.37 Molly Bennett e-Acetamin - three times a M., M.DVentura ophen 01/21/2018 day as needed M79.606 M54.17 Immunizations Description No Information Available Vital Signs Description No Information Available Results Test Date Facility Test Result H/L Range Note Urine Drug [facility] [place] PBN-Lccak-3-Cooh Negative 5 1, 2 8 ng/mL Antidepressants [facility] Amitriptyline Negative 20 Panel By LC/MS/MS 8 ng/mL Clomipramine Negative ng/mL 20 Desipramine Negative ng/mL 20 Doxepin Negative ng/mL 20 Fluoxetine Negative ng/mL 20 Imipramine Negative ng/mL 20 Norclomipramine Negative ng/mL 20 Nordoxepin Negative ng/mL 20 Nortriptyline Negative ng/mL 20 Sertraline Negative ng/mL 20 Trimipramine Negative ng/mL 20 3 Barbiturates Panel By 08/19/2017 [facility] Butalbital Negative ng/mL 100 LC/MS/MS Pentobarbital Negative ng/mL 100 Phenobarbital Negative ng/mL 100 Secobarbital Negative ng/mL 100 4 Benzodiazepines 08/19/2017 [facility] 2-Hydroxyethylflurazepam Negative 10 Panel By LC/MS/MS [...] ng/mL 10 5 Buprenorphine Panel By 08/19/2017 [facility] Buprenorphine Negative ng/mL 5 LC/MS/MS Naloxone Negative ng/mL 10 Norbuprenorphine Negative ng/mL 5 6 Methadone Panel By 08/19/2017 [facility] Eddp Negative ng/mL 10 LC/MS/MS Methadone Negative ng/mL 10 7 Opiates Panel By 08/19/2017 [facility] 6-Yu (Heroin Negative ng/ mL 5 LC/MS/MS Metabolite) Codeine Negative ng/mL 50 Hydrocodone Negative Inconsi <SEE NOTE> ng/mL 50 8 Hydromorphone Negative Inconsi <SEE NOTE> ng/mL 50 9 Morphine Negative ng/mL 50 Norhydrocodone Negative Inconsi <SEE NOTE> ng/mL 50 10 Noroxycodone Negative ng/mL 50 Noroxymorphone Negative ng/mL 50 Oxycodone Negative ng/mL 50 Oxymorphone Negative ng/mL 50 11 Specimen Validity 08/19/2017 [facility] Creatinine, Urine 122 mg/ dL >20 Panel Color YELLOW Yellow pH 7.6 5.0-8.0 Specific [place] 1.012 1.001-1.035 12 Amphetamine Panel By 08/19/2017 [facility] Amphetamine Negative ng/mL 50 LC/MS/MS Methamphetamine Negative ng/mL 50 Mdma (Ecstasy) Negative ng/mL 50 Mda Negative ng/ml 50 Mdea Negative ng/mL 50 13 Cocaine Panel 08/19/2017 [facility] Benzoylecgonine Negative ng/ mL 50 14 By LC/MS/MS (Cocaine) Urine DRG SCR 08/19/2017 [facility] Amphetamine NEGATIVE 1000 (12PNL-PM) Barbiturate NEGATIVE 200 Benzodiazepine NEGATIVE 200 Buprenorphine NEGATIVE 15 Cannabinoid NEGATIVE 50 Cocaine NEGATIVE 300 Methadone NEGATIVE 300 Methaqualone NEGATIVE 300 Opiate NEGATIVE 300 Oxycodone NEGATIVE 300 Phencyclidine NEGATIVE 25 Propoxyphene NEGATIVE 300 15 Laboratory test finding 08/19/2017 [facility] Tramadol Negative ng/mL 5 16 Gabapentin [...] Date Location Provider Dx Diagnosis Office Visit 01/21/2018 Molly [place]aho 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.891 assisted (current) use of opiate analgesic Office Visit 12/23/2017 2:00p [facility] Molly Bennett M51.37 Other intervertebral M., M.D. 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.891 assisted (current) use of opiate analgesic Office Visit 11/25/2017 11:15a [facility] Molly Bennett M51.37 Other intervertebral M., M.D. 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.891 assisted (current) use of opiate analgesic Office Visit 11/11/2017 1:15p [facility] Molly Bennett M51.37 Other intervertebral M., M.D. 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.891 assisted (current) use of opiate analgesic Office Visit 09/16/2017 3:45p [facility] Molly Bennett M51.37 Other intervertebral M., M.D. 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 of opiate analgesic Plan of Treatment 01/21/2018 - Molly Bennett M.D.M51.37 Other intervertebral disc degeneration , lumbosacral regionNew Medication:Prednisone 20 mg - 3 tab by mouth daily 3 days, then 2 tab daily x 3 d , then 1 tab daily 3dPercocet 7.5-325 mg - 1 tab by mouth every 6 hours as neededComments:EXERCISE/HEAT /MESSAGEAVOID HEAVY LIFTING WT LOSSTYLENOL OR MOTRIN PRN DUR [id number] Radiculopathy, lumbosacral regionNew Medication:Percocet 7.5-325 mg - 1 tab by mouth every 6 hours as neededComments:EXERCISE/HEAT /MESSAGE AVOID HEAVY LIFTING WT LOSS TYLENOL OR MOTRIN PRN DUR [id number] Pain in leg, unspecifiedNew Medication:Percocet 7.5-325 mg - 1 tab by mouth every 6 hours as neededComments: TYLENOL OR MOTRIN PRN EXERCISE/HEAT/MESSAGE DUR [id number] terminal operator ( current) use of opiate analgesicComments:REVIEWED MEDICATIONS AND DIRECTIONS WITH PATIENT DUR CHECKED
--- OUTSIDE RECORDS SUMMARY | 2018-02-11 12:51 | XMS REPORT | Continuity of Care Document ---
:1940 External Reference #:[id number] Author Name Molly Bennett M.D. 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 Payers Type Date Identification Numbers Payment Provider Subscriber Policy Number: [id number] [facility]ly [facility] Group Number: EXT: [id number] [facility] PayID: [id number] [address] [place] [address] Policy Number: [id number] [facility] [address] Insurance [facility] PayID: [id number] [address] [address] [place] [address] Policy Number: [id number] [facility] PayID: [id number] [address] [place] [address] Advance Directives Description No Information Available Problems Description No Information Family History Description No Information Available Social History Type Date Description Comments Sex Unknown Allergies, Adverse Reactions, Alerts Description No Known Drug Allergies Medications Medication Date Status Form Strength Qnty SIG Indications Ordering Provider Percocet 01/22/20 Active Tablets 7.5-325mg 60tabs 1 tab by M51.37 Molly Bennett 18 mouth M., M.D. every 6 hours as needed M79.606 M54.17 Ibuprofen 08/19/2017 Active Tablets 800mg 90tabs 1 by mouth M51.37 Molly Bennett three times a M., M.D. day as needed M79.606 M54.17 Prednisone 01/22/20 Hx Tablets 20mg 18tabs 3 tab by mouth M51.37 Molly Bennett 18 - daily 3 days, M., M.D. 01/30/20 then 2 tab 18 daily x 3 d , then 1 tab daily 3d Hydrocodone-Acetam 08/20/19 Hx Tablets 7.5-325m 30tabs 1 tab by mouth M51.37 Molly Bennett inophen 18 - g three times a M., M.D. 01/22/20 day as needed 18 M79.606 M54.17 Immunizations Description No Information Available Vital Signs Description No Information Available Results Test Date Facility Test Result H/L Range Note Urine Drug [facility] CCR-Whkre-4-Cooh Negative 5 1, 2 8 ng/mL Antidepressants [facility] Amitriptyline Negative 20 Panel By LC/MS/MS 8 ng/mL Clomipramine Negative ng/mL 20 Desipramine Negative ng/mL 20 Doxepin Negative ng/mL 20 Fluoxetine Negative ng/mL 20 Imipramine Negative ng/mL 20 Norclomipramine Negative ng/mL 20 Nordoxepin Negative ng/mL 20 Nortriptyline Negative ng/mL 20 Sertraline Negative ng/mL 20 Trimipramine Negative ng/mL 20 3 Barbiturates Panel By 08/19/2017 [facility] Butalbital Negative ng/mL 100 LC/MS/MS Pentobarbital Negative ng/mL 100 Phenobarbital Negative ng/mL 100 Secobarbital Negative ng/mL 100 4 Benzodiazepines 08/19/2017 [facility] 2-Hydroxyethylflurazepam Negative 10 Panel By [...] ng/mL 10 5 Buprenorphine Panel By 08/19/2017 [facility] Buprenorphine Negative ng/mL 5 LC/MS/MS Naloxone Negative ng/mL 10 Norbuprenorphine Negative ng/mL 5 6 Methadone Panel By 08/19/2017 [facility] Eddp Negative ng/mL 10 LC/MS/MS Methadone Negative ng/mL 10 7 Opiates Panel By 08/19/2017 [facility] 6-Yu (Heroin Negative ng/ mL 5 LC/MS/MS Metabolite) Codeine Negative ng/mL 50 Hydrocodone Negative Inconsi <SEE NOTE> ng/mL 50 8 Hydromorphone Negative Inconsi <SEE NOTE> ng/mL 50 9 Morphine Negative ng/mL 50 Norhydrocodone Negative Inconsi <SEE NOTE> ng/mL 50 10 Noroxycodone Negative ng/mL 50 Noroxymorphone Negative ng/mL 50 Oxycodone Negative ng/mL 50 Oxymorphone Negative ng/mL 50 11 Specimen Validity 08/19/2017 [facility] Creatinine, Urine 122 mg/ dL >20 Panel Color YELLOW Yellow pH 7.6 5.0-8.0 Specific [place] 1.012 1.001-1.035 12 Amphetamine Panel By 08/19/2017 [facility] Amphetamine Negative ng/mL 50 LC/MS/MS Methamphetamine Negative ng/mL 50 Mdma (Ecstasy) Negative ng/mL 50 Mda Negative ng/ml 50 Mdea Negative ng/mL 50 13 Cocaine Panel 08/19/2017 [facility] Benzoylecgonine Negative ng/ mL 50 14 By LC/MS/MS (Cocaine) Urine DRG SCR 08/19/2017 [facility] Amphetamine NEGATIVE 1000 (12PNL-PM) Barbiturate NEGATIVE 200 Benzodiazepine NEGATIVE 200 Buprenorphine NEGATIVE 15 Cannabinoid NEGATIVE 50 Cocaine NEGATIVE 300 Methadone NEGATIVE 300 Methaqualone NEGATIVE 300 Opiate NEGATIVE 300 Oxycodone NEGATIVE 300 Phencyclidine NEGATIVE 25 Propoxyphene NEGATIVE 300 15 Laboratory test finding 08/19/2017 [facility] Tramadol Negative ng/mL 5 16 [...] Date Location Provider Dx Diagnosis Office Visit 02/08/2018 [facility] Molly Bennett 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.891 [facility] (current) use of opiate analgesic Office Visit 11/25/2017 11:15a [facility] Molly Bennett M51.37 Other intervertebral M., M.D. 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.891 [facility] (current) use of opiate analgesic Plan of Treatment 02/08/2018 - Molly Bennett M.D.M51.37 Other intervertebral disc degeneration , lumbosacral regionComments:EXERCISE/HEAT /MESSAGEAVOID HEAVY LIFTING WT LOSSTYLENOL OR MOTRIN PRN DUR CHECKED WILL CONTINUE WITH RX IS FOR NOW AND IF DID NOT IMPROVE BY NEXT VISIT WILL TRY SOME [id number] Radiculopathy, lumbosacral regionComments:EXERCISE/HEAT /MESSAGE AVOID HEAVY LIFTING WT LOSS TYLENOL OR MOTRIN PRN DUR [id number] Pain in leg, unspecifiedComments:TYLENOL OR MOTRIN PRN EXERCISE/HEAT/MESSAGE DUR [id number] [facility] (current) use of opiate analgesicComments:REVIEWED MEDICATIONS AND DIRECTIONS WITH PATIENT DUR CHECKED
--- OUTSIDE RECORDS SUMMARY | 2018-02-11 12:52 | XMS REPORT | Continuity of Care Document ---
:1940 External Reference #:[id number] Author Name Molly Bennett M.D. 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 Payers Type Date Identification Numbers Payment Provider Subscriber Policy Number: [id number] [facility] Comp [employer] Fel[employer] Group Number: EXT: [id number] [facility] PayID: [id number] [address] [place] [address] Advance Directives Description No Information Available Problems [...] Test Result H/L Range Note Urine Drug [place] [facility] XGT-Exkwu-9-Cooh Negative 5 1, 2 8 ng/mL Antidepressants [facility] Amitriptyline Negative 20 Panel By LC/MS/MS 8 ng/mL Clomipramine Negative ng/mL 20 Desipramine Negative ng/mL 20 Doxepin Negative ng/mL 20 Fluoxetine Negative ng/mL 20 Imipramine Negative ng/mL 20 Norclomipramine Negative ng/mL 20 Nordoxepin Negative ng/mL 20 Nortriptyline Negative ng/mL 20 Sertraline Negative ng/mL 20 Trimipramine Negative ng/mL 20 3 Barbiturates Panel By 08/19/2017 [facility] Butalbital Negative ng/mL 100 LC/MS/MS Pentobarbital Negative ng/mL 100 Phenobarbital Negative ng/mL 100 Secobarbital Negative ng/mL 100 4 Benzodiazepines 08/19/2017 [facility] 2-Hydroxyethylflurazepam Negative 10 Panel By [...] ng/mL 10 5 Buprenorphine Panel By 08/19/2017 [facility] Buprenorphine Negative ng/mL 5 LC/MS/MS Naloxone Negative ng/mL 10 Norbuprenorphine Negative ng/mL 5 6 Methadone Panel By 08/19/2017 [facility] Eddp Negative ng/mL 10 LC/MS/MS Methadone Negative ng/mL 10 7 Opiates Panel By 08/19/2017 [facility] 6-Yu (Heroin Negative ng/ mL 5 LC/MS/MS Metabolite) Codeine Negative ng/mL 50 Hydrocodone Negative Inconsi <SEE NOTE> ng/mL 50 8 Hydromorphone Negative Inconsi <SEE NOTE> ng/mL 50 9 Morphine Negative ng/mL 50 Norhydrocodone Negative Inconsi <SEE NOTE> ng/mL 50 10 Noroxycodone Negative ng/mL 50 Noroxymorphone Negative ng/mL 50 Oxycodone Negative ng/mL 50 Oxymorphone Negative ng/mL 50 11 Specimen Validity 08/19/2017 [facility] Creatinine, Urine 122 mg/ dL >20 Panel Color YELLOW Yellow pH 7.6 5.0-8.0 Specific [place] 1.012 1.001-1.035 12 Amphetamine Panel By 08/19/2017 [facility] Amphetamine Negative ng/mL 50 LC/MS/MS Methamphetamine Negative ng/mL 50 Mdma (Ecstasy) Negative ng/mL 50 Mda Negative ng/ml 50 Mdea Negative ng/mL 50 13 Cocaine Panel 08/19/2017 [facility] Benzoylecgonine Negative ng/ mL 50 14 By LC/MS/MS (Cocaine) Urine DRG SCR 08/19/2017 [facility] Amphetamine NEGATIVE 1000 (12PNL-PM) Barbiturate NEGATIVE 200 Benzodiazepine NEGATIVE 200 Buprenorphine NEGATIVE 15 Cannabinoid NEGATIVE 50 Cocaine NEGATIVE 300 Methadone NEGATIVE 300 Methaqualone NEGATIVE 300 Opiate NEGATIVE 300 Oxycodone NEGATIVE 300 Phencyclidine NEGATIVE 25 Propoxyphene NEGATIVE 300 15 Laboratory test finding 08/19/2017 [facility] Tramadol Negative ng/mL 5 16 [...] Date Location Provider Dx Diagnosis Office Visit 01/13/2018 [facility] Molly Bennett M51.37 Other intervertebral 9:00a M.D. 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.891 prison (current) use of opiate analgesic Office Visit 11/25/2017 11:15a [facility] DonaldKevinnicky M51.37 Other intervertebral M., M.D. 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.891 prison (current) use of opiate analgesic Office Visit 10/14/2017 2:30p [facility] Molly Bennett M51.37 Other intervertebral M., M.D. 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.891 prison (current) use of opiate analgesic Plan of Treatment 01/13/2018 - Molly Bennett M.D.M51.37 Other intervertebral disc degeneration , lumbosacral regionComments:EXERCISE/HEAT /MESSAGEAVOID HEAVY LIFTING WT LOSSTYLENOL OR MOTRIN PRN DUR [id number] Radiculopathy, lumbosacral regionComments:EXERCISE/HEAT /MESSAGE AVOID HEAVY LIFTING WT LOSS TYLENOL OR MOTRIN PRN DUR [id number] Pain in leg, unspecifiedComments:TYLENOL OR MOTRIN PRN EXERCISE/HEAT/MESSAGE DUR [id number] restaurant line cook (current) use of opiate analgesicComments:REVIEWED MEDICATIONS AND DIRECTIONS WITH PATIENT DUR CHECKED
[2018-02-11 13:26] VITALS: BP 116/66
--- NOTE | 2018-02-11 14:15 | UC ---
Back Pain HPI - HPI Summary HPI Summary: The patient is a 77-year-old female that presents here with acute exacerbation of her chronic back pain. He states she sustained an injury back in the late . This injury was work-related. He states her Worker's Comp. case is still open. She is currently taking narcotic pain medicines. She states she only has 3 left. 2 days ago she had an exacerbation of her pain when she twisted. Pain is primarily left lower back. His radiation of pain into both buttocks and down the posterior thighs to the knees. Pain is worse on the left side than the right. She has had no bowel or bladder dysfunction. She has had recent x-rays of her lower back. She has had MRIs of her lower back in the past. She states she has degenerative disc disease. She has had no bowel or bladder dysfunction. - History of Current Complaint Chief Complaint: UCBackPain Stated Complaint: COMP-BACK COMPLAINT Time Seen by Provider: 02/11/18 13:52 Hx Obtained From: Patient Onset/Duration: Sudden Onset, Worse Since - 2 days Timing: Constant Severity Initially: Severe Severity Currently: Severe Pain Intensity: 8 Pain Scale Used: 0-10 Numeric Back Pain: Is Discrete @ - left lower back, Radiates To - r and l buttock and into posterior thighs (L>R) Aggravating Factor(s): Movement Alleviating Factor(s): Nothing - no relieve with oxycodone Related History: Occupational Injury, Previous Back Injury Full Body (No Head): 1 - tender 2 - radiation 3 - radiation of pain - Allergies/Home Medications Allergies/Adverse Reactions: Allergies Allergy/AdvReac Type Severity Reaction Status Date / Time No Known Allergies Allergy Verified 02/11/18 13:25 PMH/Surg Hx/FS Hx/Imm Hx Previously Healthy: Yes Cancer History: Breast Cancer Other History Of: Negative For: HIV - Surgical History Surgical History: Yes Surgery Procedure, Year, and Place: Benign Left Breast biopsy [id number]. LUMPECTOMY RIGHT BREAST - Family History Known Family History: Positive: None, Hypertension - Social History Alcohol Use: None Substance Use Type: None Smoking Status (MU): Former Smoker When Did the Patient Quit Smoking/Using Tobacco: 2012 - Immunization History Most Recent Influenza Vaccination: 2017 Review of Systems Constitutional: Negative Skin: Negative Eyes: Negative ENT: Negative Respiratory: Negative Cardiovascular: Negative Gastrointestinal: Negative Genitourinary: Negative Motor: Negative Neurovascular: Negative Musculoskeletal: Arthralgia, Myalgia Neurological: Negative Psychological: Negative All Other Systems Reviewed And Are Negative: Yes Physical Exam Triage Information Reviewed: Yes Appearance: Well-Appearing, Pain Distress - pacing room/slow, wide based gait, holding back Vital Signs: Initial Vital Signs Temp 97.7 F 02/11/18 13:15 Pulse 83 02/11/18 13:15 Resp 18 02/11/18 13:15 BP 116/66 02/11/18 13:15 Pulse Ox 99 02/11/18 13:15 Vital Signs Reviewed: Yes Eyes: Positive: Conjunctiva Clear ENT: Positive: Hearing grossly normal. Negative: Nasal congestion, Nasal drainage, Trismus, Muffled voice, Hoarse voice Neck: Positive: Supple, Nontender Respiratory: Positive: Lungs clear, Normal breath sounds, No respiratory distress Cardiovascular: Positive: RRR, No Murmur Musculoskeletal: Positive: Strength Intact, ROM Intact Neurological Exam: Normal Neurological: Positive: Alert, Muscle Tone Normal, Other: - (-) seat SLR, sensory intact, DTRs symmetrical Psychological Exam: Normal Skin Exam: Normal Back Pain Course/Dx - Differential Dx/Diagnosis Provider Diagnoses: acute exacerbation of chronic back pain. sciatica Discharge - Sign-Out/Discharge Documenting (check all that apply): Patient Departure All imaging exams completed and their final reports reviewed: No Studies - Discharge Plan Condition: Stable Disposition: HOME Prescriptions: Hydrocodone/Acetaminophen [[place] 7.5-325 Tablet] 1 each PO BID #14 tablet MDD 2 Patient Education Materials: Back Pain (ED) Referrals: Milad Nicole MD [Medical Doctor] - As Soon As Possible - Billing Disposition and Condition Condition: STABLE Disposition: Home
== END 2018-02-11 14:18 | disposition home or self-care (01) ==
LOC: UCCORT 12:30
DX: M54.42 Lumbago with sciatica, left side (principal); M54.41 Lumbago with sciatica, right side; Z87.891 Personal history of nicotine dependence; Z85.3 Personal history of malignant neoplasm of breast; Z79.891 Long term (current) use of opiate analgesic
CPT/HCPCS: 99212; G0463

== ENCOUNTER 2018-03-18 15:04 | Emergency (ER) | payer MEDICARE ==
[2018-03-18 15:20] VITALS: BP 110/62
--- NOTE | 2018-03-18 15:44 | UC ---
UC General HPI - HPI Summary HPI Summary: PT IS C/O PAIN IN HER L LOW BACK. PT STATES SHE INJURED HER BACK IN 1998 WHILE AT WORK AND HAS BEEN HAVING BACK PAIN EVER SINCE. SHE IS C/O A FLARE SINCE THIS AM. AT TIMES, THE PAIN RADIATES INTO HER L LEG. SHE DENIES ANY ACUTE INJURY. 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 TX IB. - History of Current Complaint Chief Complaint: UCBackPain Stated Complaint: LOW BACK PAIN Time Seen by Provider: 03/18/18 15:28 Hx Obtained From: Patient Pain Intensity: 9 Aggravating: bending Associated Signs & Symptoms: Positive: Other - No numb/weak extremities. No bowel/bladder dysfunction or saddle anesthesia.. Negative: Abdominal Pain, Fever - Allergy/Home Medications Allergies/Adverse Reactions: Allergies Allergy/AdvReac Type Severity Reaction Status Date / Time No Known Allergies Allergy Verified 03/18/18 15:15 Home Medications: Home Medications Ibuprofen TAB* [Advil TAB*] 200 mg PO Q6H PRN 03/18/18 [History Confirmed ] PMH/Surg Hx/FS Hx/Imm Hx - Additional Past Medical History Additional PMH: chronic back pain Other History Of: Negative For: HIV - Surgical History Surgical History: Yes Surgery Procedure, Year, and Place: Benign Left Breast biopsy [id number]. LUMPECTOMY RIGHT BREAST - Family History Known Family History: Positive: None, Hypertension - Social History Alcohol Use: None Substance Use Type: None Smoking Status (MU): Former Smoker When Did the Patient Quit Smoking/Using Tobacco: 2011 - Immunization History Most Recent Influenza Vaccination: 2017 Vaccination Up to Date: Yes Review of Systems All Other Systems Reviewed And Are Negative: Yes Constitutional: Negative: Fever Skin: Positive: Negative Eyes: Positive: Negative ENT: Positive: Negative Respiratory: Positive: Negative Cardiovascular: Positive: Negative Gastrointestinal: Negative: Abdominal Pain Genitourinary: Positive: Negative Motor: Positive: Negative Neurovascular: Negative: Decreased Sensation Musculoskeletal: Positive: Other: - low back pain Neurological: Negative: Weakness, Paresthesia, Numbness Psychological: Positive: Negative Is Patient Immunocompromised?: No Physical Exam Triage Information Reviewed: Yes Appearance: Well-Appearing Vital Signs: Initial Vital Signs Temp 98 F 11/30/18 15:13 Pulse 80 03/18/18 15:13 Resp 26 03/18/18 15:13 BP 110/62 03/18/18 15:13 Pulse Ox 98 03/18/18 15:13 Vital Signs Reviewed: Yes Eyes: Positive: Conjunctiva Clear ENT: Positive: Normal ENT inspection Neck: Positive: Supple, Nontender, No Lymphadenopathy Respiratory: Positive: Lungs clear, No respiratory distress Cardiovascular: Positive: RRR, No Murmur Abdomen Description: Positive: Nontender, No Organomegaly, Soft. Negative: Distended, Guarding, Pulsatile Mass Bowel Sounds: Positive: Present Musculoskeletal: Positive: Other: - Back: no deformity, swelling or discoloration. Tender over L lower paraspinal mm in lumbar regin. decreased flexion at waiste due to pain. No saddle anesthesia. 5/5 strenght, 2+ reflexes and sensation intact x4. steady gait. Neurological: Positive: Alert Psychological: Positive: Age Appropriate Behavior Skin Exam: Normal Skin: Negative: Rashes Course/Dx - Differential Dx - Multi-Symptom Differential Diagnoses: Other - no concern for fx, infection, acute abdomen or cauda equina. - Diagnoses Provider Diagnosis: Chronic back pain Discharge - Sign-Out/Discharge Documenting (check all that apply): Patient Departure All imaging exams completed and their final reports reviewed: No Studies - Discharge Plan Condition: Stable Disposition: HOME Prescriptions: Cyclobenzaprine TAB* [Flexeril 10 MG TAB*] 10 mg PO TID PRN #15 tab PRN Reason: Spasms - Back Patient Education Materials: Chronic Back Pain (DC) Referrals: Milad Arana MD [Medical Doctor] - As Soon As Possible Additional Instructions: FOLLOW UP WITH DR ARANA OCCUPATIONAL MEDICINE FOR THIS WORKERS COMP INJURY - Billing Disposition and Condition Condition: STABLE Disposition: Home
== END 2018-03-18 16:11 | disposition home or self-care (01) ==
LOC: UCCORT 15:04
DX: G89.29 Other chronic pain (principal); M54.5 Low back pain; Z87.891 Personal history of nicotine dependence
CPT/HCPCS: 99212; G0463

== ENCOUNTER 2018-08-15 14:43 | Emergency (ER) | payer MEDICARE ==
[2018-08-15 15:00] VITALS: BP 113/65
--- NOTE | 2018-08-15 15:39 | UC ---
Respiratory Complaint HPI - HPI Summary HPI Summary: 78 yo female with a 4-5 day hx of cough, productive of green sputum. Has felt winded and tired. No fever but she has had chills no n/v/d was admitted for pneumonia about a year ago - History of Current Complaint Chief Complaint: UCGeneralIllness Stated Complaint: SOB,BACK PAIN Time Seen by Provider: 08/15/18 15:01 Hx Obtained From: Patient Onset/Duration: Gradual Onset, Lasting Days Timing: Constant Severity Initially: Mild Severity Currently: None Pain Intensity: 5 Pain Scale Used: 0-10 Numeric Character: Cough: Productive, Sputum Description: - green Aggravating Factors: Nothing Alleviating Factors: Nothing Associated Signs And Symptoms: Positive: Dyspnea, Chills. Negative: Fever, Pleuritic Chest Pain, Wheezing, Hemoptysis, Dizziness, Calf Pain, Calf Swelling , Edema, URI, Nasal Congestion, Hoarseness, Sinus Discomfort Related History: Similar Episode/Dx as: - pneumonia - Allergies/Home Medications Allergies/Adverse Reactions: Allergies Allergy/AdvReac Type Severity Reaction Status Date / Time No Known Allergies Allergy Verified 08/15/18 14:49 Home Medications: Home Medications Otc Back And Pain Med 1 tab PO PRN 08/15/18 [History] PMH/Surg Hx/FS Hx/Imm Hx Previously Healthy: Yes Cardiovascular History: Other Other Cardiovascular History: AAA Respiratory History: Pneumonia Cancer History: Breast Cancer Other History Of: Negative For: HIV - Surgical History Surgical History: Yes Surgery Procedure, Year, and Place: Benign Left Breast biopsy [id number]. LUMPECTOMY RIGHT BREAST - Family History Known Family History: Positive: None, Hypertension - Social History Alcohol Use: None Substance Use Type: None Smoking Status (MU): Former Smoker When Did the Patient Quit Smoking/Using Tobacco: 2011 - Immunization History Most Recent Influenza Vaccination: 2017 Vaccination Up to Date: Yes Review of Systems All Other Systems Reviewed And Are Negative: Yes Constitutional: Positive: Chills, Fatigue Skin: Positive: Negative Eyes: Positive: Negative ENT: Positive: Negative Respiratory: Positive: Cough Cardiovascular: Positive: Negative Gastrointestinal: Positive: Negative Genitourinary: Positive: Negative Motor: Positive: Negative Neurovascular: Positive: Negative Musculoskeletal: Positive: Arthralgia - chronic back Neurological: Positive: Negative Psychological: Positive: Negative Physical Exam Triage Information Reviewed: Yes Appearance: Well-Appearing, No Pain Distress, Well-Nourished Vital Signs: Initial Vital Signs Temp 98.7 F 08/15/18 14:51 Pulse 66 08/15/18 14:51 Resp 16 08/15/18 14:51 BP 113/65 08/15/18 14:51 Pulse Ox 99 08/15/18 14:51 Vital Signs Reviewed: Yes Eyes: Positive: Conjunctiva Clear ENT: Positive: Hearing grossly normal. Negative: Nasal congestion, Nasal drainage, Tonsillar swelling, Sinus tenderness, Uvula midline Neck: Positive: Supple, Nontender, No Lymphadenopathy Respiratory: Positive: No respiratory distress, No accessory muscle use, Crackles - right lat chest Cardiovascular: Positive: RRR. Negative: No Murmur, Pulses Normal Musculoskeletal: Positive: ROM Intact, No Edema Neurological: Positive: Alert Psychological Exam: Normal Skin Exam: Normal Diagnostics - Radiology No standard instances Radiology Interpretation Completed By: Radiologist Summary of Radiographic Findings: NAD Respiratory Course/Dx - Differential Dx/Diagnosis Provider Diagnosis: Acute bronchitis Discharge - Sign-Out/Discharge Documenting (check all that apply): Patient Departure All imaging exams completed and their final reports reviewed: Yes - Discharge Plan Condition: Stable Disposition: HOME Patient Education Materials: Acute Bronchitis (ED) Referrals: Gabriela Banerjee PA [Primary Care Provider] - 2 Days (recheck this week) - Billing Disposition and Condition Condition: STABLE Disposition: Home
== END 2018-08-15 16:00 | disposition home or self-care (01) ==
LOC: UCCORT 14:43
DX: J20.9 Acute bronchitis, unspecified (principal); Z87.891 Personal history of nicotine dependence
CPT/HCPCS: 71046; 99212; G0463

== ENCOUNTER 2018-09-22 15:07 | Emergency (ER) | payer MEDICARE, OTHER ==
[2018-09-22 15:44] VITALS: BP 99/59
[2018-09-22] MEDS ORDERED: traMADol TAB* 50 MG PO ONE (16:38)
[2018-09-22] MEDS ORDERED: predniSONE TAB* 20 MG PO ONE (16:39)
[2018-09-22] MEDS ORDERED: Cyclobenzaprine TAB* 10 MG PO ONE (16:39)
--- NOTE | 2018-09-22 17:10 | ED ---
Back Pain - HPI Summary HPI Summary: pt presents to the for evaluation of her back pain. she states that she has chronic pain. it has been flaring up. she had a mri done 3 weeks ago of her entire back. pt states that the mri was nl. she further states that her feet turn blue on occassion and her feet hurt. she states she has not had any vascular studies of her legs. she use to smoke but is not a current smoker.. - History of Current Complaint Chief Complaint: UCBackPain Stated Complaint: BACK PAIN Hx Obtained From: Patient Onset/Duration: Other - months worse recently Timing: Constant, Intermittent Pain Intensity: 10 Character: Aching, Throbbing, Spasmodic, Stiffness Aggravating Symptom(s): Movement, Lifting, Bending, Walking Alleviating Symptom(s): Rest, Position Associated Signs And Symptoms: Negative: Fever - Allergies/Home Medications Allergies/Adverse Reactions: Allergies Allergy/AdvReac Type Severity Reaction Status Date / Time No Known Allergies Allergy Verified 09/22/18 15:44 Home Medications: Home Medications Ibuprofen TAB* [Motrin TAB* 400 MG] 400 mg PO Q6H PRN 09/22/18 [History Confirmed 09/22/18] PMH/Surg Hx/FS Hx/Imm Hx Previously Healthy: Yes Endocrine/Hematology History: Denies: Hx Diabetes Cardiovascular History: Denies: Hx Congestive Heart Failure, Hx Hypertension Respiratory History: Denies: Hx Lung Cancer Neurological History: Denies: Hx Transient Ischemic Attacks (TIA) Psychiatric History: Denies: Hx Anxiety - Cancer History Cancer Type, Location and Year: right breast growth 2017, radiation tx and chemo completed Hx Radiation Therapy: No - Surgical History Surgery Procedure, Year, and Place: Benign Left Breast biopsy [id number]. LUMPECTOMY RIGHT BREAST Infectious Disease History: No Infectious Disease History: Denies: Traveled Outside the [place] in Last 30 Days - Family History Known Family History: Positive: None, Hypertension - Social History Alcohol Use: None Substance Use Type: Reports: None Smoking Status (MU): Former Smoker Review of Systems Constitutional: Negative Eyes: Negative ENT: Negative Cardiovascular: Negative Respiratory: Negative Gastrointestinal: Negative Negative: dysuria, frequency, flank pain, hematuria Positive: Myalgia Skin: Negative Negative: Headache, Syncope Psychological: Normal All Other Systems Reviewed And Are Negative: No Physical Exam Triage Information Reviewed: Yes Vital Signs On Initial Exam: Initial Vitals Temp Pulse Resp BP Pulse Ox 99.9 F 89 18 99/59 98 09/22/18 15:39 09/22/18 15:39 09/22/18 15:39 09/22/18 15:39 09/22/18 15:39 Vital Signs Reviewed: Yes Appearance: Positive: Well-Appearing, Pain Distress - mild, Thin Skin: Positive: Warm, Dry, Other - slight delay in capillary refill to toes and distal feet. good dorsal pedal and post tibial pulses Head/Face: Positive: Normal Head/Face Inspection Eyes: Positive: Normal, EOMI, BARRY ENT: Positive: Hearing grossly normal Neck: Positive: Supple, Nontender Respiratory/Lung Sounds: Positive: Clear to Auscultation, Breath Sounds Present Cardiovascular: Positive: Normal, RRR Abdomen Description: Positive: Nontender, Soft Bowel Sounds: Positive: Present Musculoskeletal: Positive: Other - tender to lower back Neurological: Positive: Normal, Sensory/Motor Intact, Alert, Oriented to Person Place, Time, CN Intact II-III Psychiatric: Positive: Normal AVPU Assessment: Alert Diagnostics - Vital Signs Vital Signs Temp Pulse Resp BP Pulse Ox 09/22/18 15:39 99.9 F 89 18 99/59 98 - Laboratory Lab Statement: Any lab studies that have been ordered have been reviewed, and results considered in the medical decision making process. Back Pain Course/Dx - Course Course Of Treatment: pt has had chronic back pain that is worse recently. she has had a mri of her entire back as per pt and daughter that was normal. she was given tramadol, flexeril, and toradol im. pt was feeling better. I showed pt stretching exercises on the bed and while standing. pt encouraged to f/u with pcp and discuss a workup regarding vascular issues. - Diagnoses Provider Diagnoses: Back pain Discharge - Sign-Out/Discharge Documenting (check all that apply): Patient Departure All imaging exams completed and their final reports reviewed: No Studies - Discharge Plan Condition: Stable Disposition: HOME Prescriptions: Cyclobenzaprine TAB* [Flexeril 10 MG TAB*] 5 mg PO TID #30 tab predniSONE TAB* [Deltasone 20 MG TAB*] 40 mg PO DAILY #8 tab traMADol TAB* [Ultram*] 50 mg PO Q12H PRN #12 tab MDD 2 PRN Reason: Pain Patient Education Materials: Low Back Strain (ED), Core Strengthening Exercises (GEN) Referrals: Gabriela Banerjee PA [Primary Care Provider] - Additional Instructions: please follow up with your primary care physician. return if worse or any new symptoms. Discuss with your doctor the need for vascular studies. do stretching exercises as instructed. - Billing Disposition and Condition Condition: STABLE Disposition: Home
== END 2018-09-22 17:20 | disposition home or self-care (01) ==
LOC: UCCORT 15:07
DX: M54.9 Dorsalgia, unspecified (principal); Z92.21 Personal history of antineoplastic chemotherapy; Z92.3 Personal history of irradiation; Z87.891 Personal history of nicotine dependence
CPT/HCPCS: 99212; A9270-GY; G0463; J7512

== ENCOUNTER 2019-01-03 17:10 | Emergency (ER) | payer SELFPAY ==
--- OUTSIDE RECORDS SUMMARY | 2019-01-03 17:40 | XMS REPORT | Continuity of Care Document ---
:1940 External Reference #:[id number] Author Name Ross Christine MD (transmitted by agent of provider Eboni Thompson) Address [address] [place] [address] Care Team Providers Name Role Phone Gabriela Banerjee RPA - Medical Care Team Information [employer] [phone] Problems Active Problems Provider Date Hydronephrosis ELIEZER Epperson Onset: 08/17/2018 Note: (R) side 2012 Vitamin D deficiency ELIEZER Epperson Onset: 08/17/2018 Polymyalgia rheumatica ELIEZER Epperson Onset: 08/17/2018 Note: 2011 Chronic obstructive lung disease ELIEZER Epperson Onset: 08/17/2018 Degenerative joint disease involving multiple ELIEZER Epperson Onset: 04/2018 joints Note: Hip, S-I joint, cervical/lumbar spine Personal history of primary malignant neoplasm ELIEZER Epperson Onset: of breast Note: right breast DCIS, 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 Thrombocytopenic disorder ELIEZER Epperson Onset: 08/17/2018 Note: variable Osteoporosis ELIEZER Epperson Onset: 08/17/2018 Note: hips and spine Chronic back pain ELIEZER Epperson Onset: 08/17/2018 Note: spondylosis with disc degeneration, sciatica exacerbations (responds to prednisone) Aneurysm of infrarenal abdominal aorta ELIEZER Epperson Onset: 08/17/2018 Note: 06/2018 [place] Social History Type Date Description Comments Sex Unknown ETOH Use Denies alcohol use Tobacco Use Start: Unknown End: Patient is a former smoker Quit Smoking Status Reviewed: 12/15/18 Patient is a former smoker Quit Allergies, Adverse Reactions, Alerts Description No Known Drug Allergies Medications Active Medications SIG Qnty Indications Ordering Date Provider Azithromycin 2 now and 1 daily x 4 6tabs [place] 250mg days Christine, 9 Tablets Albuterol Sulfate 1 unit dose via 90ml [place] nebulizer every 4 Christine, 9 (2.5mg/3ML) 0.083% hours as needed Nebulizer Order Restart oxygen --units J44.1 [place] supplementation Christine, 9 Pain Relieving one to mid back [place] Lidocaine Patch Christine, 9 4% MD Patches Proair HFA 2 puffs every 4 hours 8.500gm [place] 108(90Base) as needed Christine, 9 mcg/Act Aerosol Calcium Carbonate 1 po tid [place] 600mg Christine, 2 Tablets Cyclobenzaprine HCL Take One Tablet By Unknown 000 5mg Mouth AT Bedtime as 0 Tablets Needed For Pain History Medications Prednisone 3 tabs daily 360tabs Ross Christine, 08/17/2018 - 1mg for 7 days, 08/17/2018 Tablets then 2 tabs daily for 7 days, then 1 tab daily Vitamin D 1 weekly for 12 12caps Ross Christine, 08/17/2018 - (Ergocalciferol) weeks, then 08/17/2018 2000 units [id number] Capsules daily Amoxicillin/Clavulan Take One Tablet Unknown 08/15/2018 - ate Potassium By Mouth Twice 08/29/2018 A Day 875-125mg Tablets Immunizations CPT Code Status Date Vaccine Lot # [id number] Given 03/25/2018 Pneumococcal Conjugate Vaccine 13 Valent For Intramuscular Use 08859 Given 03/01/2017 Influenza Virus Vaccine, Quadrivalent, Split, Preservative Free Vital Signs Date Vital Result Comment 12/15/2018 4:18pm Weight 104.50 lb Heart Rate 95 /min BP Systolic Sitting 112 mmHg BP Diastolic Sitting 68 mmHg Body Temperature 97.8 F O2 % BldC Oximetry 96 % 08/17/2018 11:01am Weight 107.56 lb Heart Rate 78 /min BP Systolic 100 mmHg BP Diastolic 80 mmHg O2 % BldC Oximetry 94 % Results Description No Information Available Procedures Date Code Description Status 11/17/2017 [id number] Mammogram Completed 08/24/2016 [id number] Bone Mineral Density Test Completed 08/24/2016 [id number] Mammogram Completed Medical Devices Description No Information Available Encounters Type Date Location Provider Dx Diagnosis Office Visit 08/17/2018 [facility] Gabriela J44.1 Chronic obstructive 11:00a ELIEZER Banerjee pulmonary disease w (acute) exacerbation Assessments Date Code Description Provider 12/15/2018 J06.9 Acute upper respiratory infection, Ross Christine MD unspecified 08/17/2018 J44.1 Chronic obstructive pulmonary disease with ELIEZER Epperson (acute) exacerbat Plan of Treatment 12/15/2018 - Ross Christine MDJ06.9 Acute upper respiratory infection, unspecifiedAllNew Medication:Azithromycin 250 mg - 2 now and 1 daily x 4 days Functional Status Description No Information Available Mental Status Description No Information Available Referrals Description No Information Available
[2019-01-03 17:47] VITALS: BP 109/66
--- NOTE | 2019-01-03 18:24 | UC ---
Back Pain HPI - HPI Summary HPI Summary: 78 yo female with open WC case from the 90s for back pain States she has daily back pain radiating down both legs states today pain worse than normal request tramadol - History of Current Complaint Chief Complaint: UCBackPain Stated Complaint: LOW BACK PAIN Time Seen by Provider: 01/03/19 18:16 Hx Obtained From: Patient Onset/Duration: Sudden Onset, Gradual Onset, Lasting Minutes Timing: Constant Severity Initially: Moderate Severity Currently: Moderate Pain Intensity: 7 Pain Scale Used: 0-10 Numeric Back Pain: Is Diffuse, Radiates To - both legs Character: Throbbing, Spasmodic Aggravating Factor(s): Movement, Lifting, Bending Alleviating Factor(s): Rest, Other - tramadol Associated Signs And Symptoms: Positive: Negative Related History: Occupational Injury, Previous Back Injury - Allergies/Home Medications Allergies/Adverse Reactions: Allergies Allergy/AdvReac Type Severity Reaction Status Date / Time No Known Allergies Allergy Verified 01/03/19 17:41 Home Medications: Home Medications Acetaminophen TAB* [Tylenol TAB*] 650 mg PO Q4H PRN 01/03/19 [History Confirmed 01/03/19] PMH/Surg Hx/FS Hx/Imm Hx Previously Healthy: Yes Other History Of: Negative For: HIV - Surgical History Surgical History: Yes Surgery Procedure, Year, and Place: Right Rotator Cuff, 1992, [place]; Right Breast Lumpectomy - Family History Known Family History: Positive: None, Hypertension, Non-Contributory - Social History Alcohol Use: None Substance Use Type: None Smoking Status (MU): Never Smoked Tobacco When Did the Patient Quit Smoking/Using Tobacco: 2011 - Immunization History Most Recent Influenza Vaccination: 2017 Vaccination Up to Date: Yes Review of Systems All Other Systems Reviewed And Are Negative: Yes Constitutional: Positive: Negative Skin: Positive: Negative Eyes: Positive: Negative ENT: Positive: Negative Respiratory: Positive: Negative Cardiovascular: Positive: Negative Gastrointestinal: Positive: Negative Genitourinary: Positive: Negative Motor: Positive: Negative Neurovascular: Positive: Negative Musculoskeletal: Positive: Myalgia Neurological: Positive: Negative Psychological: Positive: Negative Physical Exam Triage Information Reviewed: Yes Appearance: Well-Appearing, No Pain Distress, Well-Nourished Vital Signs: Initial Vital Signs Temp 98 F 01/03/19 17:39 Pulse 80 01/03/19 17:39 Resp 20 01/03/19 17:39 BP 109/66 01/03/19 17:39 Pulse Ox 98 01/03/19 17:39 Vital Signs Reviewed: Yes Eyes: Positive: Conjunctiva Clear ENT: Negative: Hearing grossly normal, Nasal congestion, Nasal drainage, Trismus , Muffled voice, Hoarse voice Neck: Positive: Supple Respiratory: Positive: Lungs clear, Normal breath sounds, No respiratory distress, No accessory muscle use Cardiovascular: Positive: RRR, No Murmur Neurological: Positive: Alert Psychological Exam: Normal Skin Exam: Normal - Additional Comments back-kypho scoliosis limited ROM dtrs symmetrical Back Pain Course/Dx - Differential Dx/Diagnosis Provider Diagnosis: Acute exacerbation of chronic low back pain, DDD (degenerative disc disease), lumbar Discharge ED - Sign-Out/Discharge Documenting (check all that apply): Patient Departure All imaging exams completed and their final reports reviewed: No Studies - Discharge Plan Condition: Stable Disposition: HOME Prescriptions: traMADol TAB* [Ultram*] 25 mg PO Q8H PRN #15 tab MDD 3 PRN Reason: Pain - Severe Patient Education Materials: Back Pain (ED) Referrals: Gabriela Banerjee PA [Primary Care Provider] - If Needed Milad Nicole MD [Medical Doctor] - 2 Weeks Additional Instructions: I suggest you see the occupational doctor listed in follow up - Billing Disposition and Condition Condition: STABLE Disposition: Home
== END 2019-01-03 18:35 | disposition home or self-care (01) ==
LOC: UCCORT 17:10
DX: G89.29 Other chronic pain (principal); M54.5 Low back pain; M51.36 Other intervertebral disc degeneration, lumbar region; Z87.891 Personal history of nicotine dependence
CPT/HCPCS: 99212; G0463